=== PATIENT | female | born 1965 | race Caucasian/White ===

== ENCOUNTER → 2016-09-10 | Outpatient (CLI) | payer MEDICAID ==
--- NOTE | 2016-09-23 10:47 | RADIOLOGY REPORT PS360 ---
US BIOPSY, US BREAST-LT COMPLETE W/AXILLA CLINICAL INDICATION: Abnormal mammogram and ultrasound demonstrating at least 2 suspicious nodules at the 10:00 region of the left breast. LEFT BREAST NODULE ORDERING PHYSICIAN: Jay Etienne MD PATIENT AGE: 51 years Prebiopsy ultrasound: There are 2 suspicious lesions confirmed at the medial aspect of the left breast at the 10:00 area. An additional lesion is also noted upon further imaging. All these areas are at the 10:00 region and all are hypoechoic. TECHNIQUE: Using standard technique under aseptic conditions and local anesthesia with 1% lidocaine using sonographic guidance, 16-gauge core needle biopsy was performed of each lesion with 3 passes performed in each lesion. One is labeled 10:00 near the nipple, a second is labeled at 10:00 mid breast, and a third is labeled 10:00 medial left breast. The patient tolerated the procedure well without evidence of immediate complication. Pathology: All 3 lesion represent a sclerosed papilloma. Excisional biopsy is recommended by the pathologist. IMPRESSION: Core biopsy performed of 3 left breast lesions all at the 10:00 area as described above and all demonstrating a sclerosed papilloma. Recommendations: Excisional biopsy. If these lesions are not palpable then a hook wire can be placed within the lesions under sonographic guidance
== END ==
LOC: RAD 10:00
PROC: 0HBU3ZX Excision of Left Breast, Percutaneous Approach, Diagnostic (ICD-10-PCS; principal; 2016-09-10)
DX: N63 Unspecified lump in breast (principal)

== ENCOUNTER 2016-10-07 07:58 | Day surgery (SDC) | payer MEDICAID ==
[~2016-10-07] VITALS: Ht 172.7 cm; Wt 99.8 kg
--- NOTE | 2016-10-07 12:16 | Operative Note ---
Surgeon/Diagnoses Surgeon/Environmental Conflict Manager(s) Date of procedure: 10/07/16 Surgeon: Guido Burns Diagnoses Pre-op diagnosis: Abnormal LEFT mammogram, multiple sclerosed papillomas Post-op diagnosis Same Procedure Procedure Procedure: Excision LEFT breast after wire localization Indications: CHARLES FLORES is a 51 year-old Female with a history of palpable lump in her LEFT breast. She has a family history of breast cancer. She felt an area near the LEFT nipple area and underwent diagnostic mammogram and ultrasound. Initially ultrasound revealed a couple of suspicious lesions. Biopsy was recommended. Additional lesion was noted at the time of her biopsy. She underwent ultrasound- guided mammotome of all 3 lesions and all 3 lesions returned as sclerosed papilloma. Pathology recommended excision. Findings: Vascular somewhat dense breast tissue Procedure Description: Patient initially was taken to radiology where she underwent placement of wires to localize the lesion. She actually had 4 wires placed. Consent was obtained the patient was then taken to the operating room. She was given preoperative intravenous antibiotics. In the operating room she was placed in a supine position. Gen. anesthesia was induced via LMA. LEFT breast was prepped and draped in the standard surgical fashion. Curvilinear incision was made in the LEFT upper inner quadrant several centimeters from the areolar edge. Dissection was carried down in the relatively superficial subdermal plane. Skin flap was then raised laterally and 2 wires were delivered into the wound. Dissection was carried down around the breast tissue deeply. Similar skin flap was raised medially delivering 2 additional wires into the wound. Dissection was carried around circumferentially around all 4 wires using electrocautery and deep to the tips of the wires. Please note that 1 wire was rather superficial and became dislodged from the specimen. Specimen containing the localization wires was then sent for specimen radiograph and ultrasound. This revealed that the lesions in question were within the specimen. Wound was then irrigated. Hemostasis was achieved electrocautery. Local anesthetic was infiltrated. Several hemoclips were placed within the wound to dereje the area for future reference. Subdermal tissues were closed with interrupted 2-0 Vicryl. Skin was closed with 4-0 Monocryl in a subcuticular fashion. A bulky clean dry sterile dressing was applied. EBL (ml): 30 Anesthesia: Gen. via LMA Specimens: LEFT breast tissue Disposition Disposition: To PACU at 1216
--- NOTE | 2016-10-07 12:17 | Anesthesia Record ---
Anesthesia Record Part I Total IV fluids: 1000 EBL (ml): 25 Urine Output: 0 (NO MCKEON) Units of blood given: 0 B/P: 146/86 % SaO2: 99 Pulse: 93 Resps: 20 Temp: 98.1 Patient is: Drowsy, Nasal O2, Stable Stable to PACU at: 1212 at 1217
--- NOTE | 2016-10-07 12:18 | Anesthesia Record ---
Anesthesia Record Part II Discharge time: 1242 Destination: Same day surgery PACU nurse assessment review? Yes Patient is: Awake, Stable Anesthesia complications? No at 1210
[2016-10-07 19:46] VITALS: BP 139/78
== END 2016-10-07 13:40 | disposition home or self-care (01) ==
LOC: SDC 07:58
PROVIDERS: Surgery
PROC: 0HBU0ZX Excision of Left Breast, Open Approach, Diagnostic (ICD-10-PCS; principal; 2016-10-07 10:00)
DX: R92.8 Other abnormal and inconclusive findings on diagnostic imaging of breast (principal); D24.2 Benign neoplasm of left breast
CPT/HCPCS: G0206-LT; J2405

== ENCOUNTER → 2017-02-23 | Outpatient (CLI) | payer MEDICAID ==
--- NOTE | 2017-02-25 18:27 | RADIOLOGY REPORT PS360 ---
DIG MAMM-SCREEN JOSE ALEJANDRO W/CAD CAD Screening COMPARISON: Digital mammograms 01/16/2016 and needle localization views for biopsy 10/07/2016 INDICATION: There is a history of breast cancer patient's sister diagnosed at age 50. There is been a recent biopsy for benign disease 10/07/2016 TECHNIQUE: Standard CC and MLO images were obtained. R2 CAD reviewed. FINDINGS: Mild to moderate fibroglandular densities are seen in the subareolar regions of both breast. There is prominent post biopsy scarring just deep to the nipple of the left breast with surgical clips in place. There is no new or suspicious lesion seen and no suspicious microcalcifications. IMPRESSION: Fibrofatty parenchyma with prominent post biopsy scarring left breast, recommend yearly follow-up BI-RADS CATEGORY: 2_Benign RECOMMENDED FOLLOWUP: 12M 12 MONTH FOLLOW-UP (A letter has been sent to the patient regarding results of the study.)
== END ==
LOC: RAD 09:00
DX: Z12.31 Encounter for screening mammogram for malignant neoplasm of breast (principal)
CPT/HCPCS: G0202